=== PATIENT | male | born 1935 | race Caucasian/White ===

== ENCOUNTER 2017-01-17 15:52 | Emergency (ER) | payer MEDICARE ==
--- NOTE | 2017-01-17 18:10 | ER Document Report ---
ED Fall - General Chief Complaint: Fall Stated Complaint: FALL Notes: Patient is concerned because he fell and is concerned he may have injured one of his knees. Patient underwent cervical spine surgery from an anterior approach yesterday and was released from the hospital today. He had just returned home and was in his house walking and slipped, falling to his knees and then to the floor. He was concerned because of his bandage and neck surgery and called the physician who said not to worry about the neck, that it would be okay. History of right TKR. He was recommended to have his knees checked, so he came here. EMS was called to transport the patient. He says that he has not stood up since the fall. Has no complaints of his neck and is moving his head and neck around easily without any apparent discomfort or problems. Did injure his left great toe and has been open area about 1 cm size that is losing blood. Family says the patient has fallen many times over the past 2 months and uses a walker to ambulate around his house. Even with the walker, the patient has falls, as he did today. Patient feels that his primary problem with falling is that he has neuropathy and has poor sensation in both of his feet. He also has a wheelchair. - Related data Allergies/Adverse Reactions: No Known Allergies Allergy (Unverified 01/17/17 18:34) Past Medical History - Social History Smoking Status: Former Smoker Cigarette use (# per day): No Chew tobacco use (# tins/day): No Frequency of alcohol use: None Drug Abuse: None Family History: Reviewed & Not Pertinent - Past Medical History Cardiac Medical History: Reports: Hx Hypertension Denies: Hx Coronary Artery Disease Neurological Medical History: Denies: Hx Cerebrovascular Accident, Hx Seizures Past Surgical History: Reports: Hx Orthopedic Surgery - neck yesterday Right TKR 15 years ago - Immunizations Hx Diphtheria, Pertussis, Tetanus Vaccination: Yes Review of Systems - Review of Systems Notes: REVIEW OF SYSTEMS: CONSTITUTIONAL : Denies fever. EENT: Denies eye, ear, nose or mouth or throat pain or other symptoms. CARDIOVASCULAR: Denies chest pain. RESPIRATORY: Denies cough, chest congestion, or shortness of breath. GASTROINTESTINAL: Denies abdominal pain or nausea, vomiting, or diarrhea. GENITOURINARY: Denies difficulty or painful urinating, urinary frequency, blood in urine. MUSCULOSKELETAL: Denies back or neck pain, just postsurgical discomfort. Denies joint pain or swelling. SKIN: Denies rash or skin lesions. NEUROLOGICAL: Denies LOC or altered mental status. Denies headache. Denies sensory loss or motor deficits. ALL OTHER SYSTEMS REVIEWED AND NEGATIVE. Physical Exam - Vital signs Vitals: Temp Pulse Resp BP Pulse Ox 97.7 F 94 16 155/76 H 96 01/17/17 16:09 01/17/17 16:09 01/17/17 16:09 01/17/17 16:09 01/17/17 16:09 Interpretation: Normal - Notes Notes: PHYSICAL EXAMINATION: GENERAL: Well-appearing, in no acute distress. Vital signs are all normal. HEAD: Atraumatic, normocephalic. EYES: Pupils equal round and reactive to light, extraocular movements intact. ENT: oropharynx clear without exudates. Moist mucous membranes. NECK: Normal range of motion, supple. Gauze bandages over the lower anterior neck. Patient moves his head around easily and without any apparent discomfort. LUNGS: Breath sounds clear and equal bilaterally. HEART: Regular rate and rhythm without murmurs. ABDOMEN: Soft, nontender. No guarding or rebound. BACK: No tenderness throughout entire back. EXTREMITIES: Normal range of motion without pain. Scar from right TKR. Both knees are without any swelling or pain or abrasions. Both knees were tested for the 4 major ligaments in each joint and there is no laxity of any of the medial or lateral collateral ligaments or the cruciate ligaments bilaterally. NEUROLOGICAL: Normal speech. Normal sensory, motor, and reflex exams. Awake, alert, and oriented x3. Cranial nerves normal. Patient moves all 4 extremities well. He is able to stand up at the bedside without assistance, but becomes unsteady on his feet if he tries to walk. He needs some support and assistance to safely walk. Patient was informed that he should not be walking by himself with his walker. He needs someone else to assist him in doing so or he needs to ambulate in a wheelchair. PSYCH: Normal mood, normal affect. SKIN: Warm, dry, no rashes. Patient has a very small, 1 cm skin avulsion near the tip and adjacent to the side of the toenail to the left big toe. It's oosing some blood, but there is no laceration to suture. The nail itself appears to be intact and in place. Course - Vital Signs Vital signs: Temp Pulse Resp BP Pulse Ox 97.7 F 94 24 H 148/85 H 96 01/17/17 16:09 01/17/17 16:09 01/17/17 18:31 01/17/17 18:31 01/17/17 18:31 - Diagnostic Test Radiology results interpreted by me: 01/17/17 19:00 X-rays of both knees are without any acute findings. There is hardware in the right knee previous TKR surgery. No swelling and no effusions present. Discharge - Discharge Clinical Impression: Fall Qualifiers: Encounter type: initial encounter Qualified Code(s): W19.XXXA - Unspecified fall, initial encounter Abrasion, left great toe, initial encounter Qualifiers: Encounter type: initial encounter Qualified Code(s): S90.412A - Abrasion, left great toe, initial encounter Contusion of right knee Qualifiers: Encounter type: initial encounter Qualified Code(s): S80.01XA - Contusion of right knee, initial encounter Contusion of left knee Qualifiers: Encounter type: initial encounter Qualified Code(s): S80.02XA - Contusion of left knee, initial encounter Condition: Stable Disposition: HOME, SELF-CARE Additional Instructions: CONTUSIONs Of the Knees: Your injury has resulted in a contusion -- a crushing of the deep tissues. No injury to important structures was detected during the physician's exam. Contusions vary in the amount of pain they cause, and in the length of time required for healing. Typically, the area will become bruised, and will remain painful to touch for two or three weeks. However, most patients are back to working and playing within a few days. After the initial period of rest and cold-packs, your symptoms (together with the doctor's recommendations) will determine how rapidly you can get back to full activity. Usually this means "do what feels okay, but don't do things that hurt." If re-examination was recommended, it's important to follow up as instructed. Call the doctor or return any time if pain increases, if swelling becomes severe, if you develop numbness or weakness in an injured extremity, or if any other alarming symptoms occur. ABRASIONS left great toe: An abrasion is a scraping injury of the skin. Some scarring may result. The seriousness of an abrasion is not always obvious at first. Hidden tissue damage may be present and infection may occur despite proper care. Complete healing may take from ten days to as long as a month. The healing time depends on the depth of the abrasion, and on the amount of crushing of underlying tissues from the injury. Keep the wound and dressing clean. Do not shower or bathe the area until okayed by the doctor. If the dressing gets wet, remove it and blot the wound dry, then reapply a clean dressing. Dressings should be changed every day. Sunscreen should be used for six months after the skin is healed. If any signs of infection occur (swelling, redness, increasing tenderness, red streaks, profuse purulent drainage from the abrasion, tender lumps in the armpit or groin above the abrasion, or fever), see the doctor immediately. NON-SUTURED LACERATION: Your laceration did not require suturing. Some lacerations cannot be sutured because of increased infection risk, while others simply don't need stitches because they are shallow or very short. Your injury should be protected while it heals. Usually complete healing takes 10 to 14 days. Keep the dressing clean and dry, and change it every day. If you notice increasing pain, redness, swelling, drainage, or tender lumps in the armpit or groin above the injury, infection may be present. You should call the doctor at once. FOLLOW-UP CARE: If you have been referred to a physician for follow-up care, call the physician s office for an appointment as you were instructed or within the next two days. If you experience worsening or a significant change in your symptoms, notify the physician immediately or return to the Emergency Department at any time for re-evaluation.
[2017-01-17 18:34] VITALS: BP 148/85
== END 2017-01-17 18:53 | disposition home or self-care (01) ==
LOC: ER 15:52
DX: S80.01XA Contusion of right knee, initial encounter (principal); S80.02XA Contusion of left knee, initial encounter; S90.412A Abrasion, left great toe, initial encounter; W01.0XXA Fall on same level from slipping, tripping and stumbling without subsequent striking against object, initial encounter; Y92.009 Unspecified place in unspecified non-institutional (private) residence as the place of occurrence of the external cause; G62.9 Polyneuropathy, unspecified; R29.6 Repeated falls; R26.81 Unsteadiness on feet; I10 Essential (primary) hypertension; Z98.890 Other specified postprocedural states; Z96.651 Presence of right artificial knee joint; Z87.891 Personal history of nicotine dependence
CPT/HCPCS: 99284